=== PATIENT | female | born 1950 | race Hispanic/Latino ===

== ENCOUNTER 2020-04-04 09:01 | Day surgery (SDC) | payer OTHER ==
[2020-03-27 11:18] LABS: Absolute Lymphocytes (CBC) 2.3 K/uL (0.7-4.9); Basophils % 0.8 % (0-1.3); Hematocrit 38.7 % (36.0-45.0); Lymphocytes % 30.8 % (15.3-44.8); MPV 8.4 fL (7.6-11.3); RBC Red Blood Cell Count 4.32 M/uL (3.86-4.86)
[2020-03-27 11:21] LABS: Urine Appearance CLEAR; Urine Bilirubin NEGATIVE (NEG); Urine Blood TRACE (NEG); Urine Color YELLOW; Urine Glucose NEGATIVE (NEG); Urine Protein NEGATIVE (NEG)
[2020-03-27 11:23] LABS: Urine Microscopic Reflex ORDER UMIC
[2020-03-27 11:34] LABS: Urine Bacteria 20-50 /HPF (<20); Urine Culture Reflex Order REFLEXED; Urine RBC <5 /HPF (NONE SEEN)
[2020-04-04] MEDS ORDERED: MIDAZOLAM HCL 2 MG/2 ML INJ ONE (09:21)
[2020-04-04] MEDS ORDERED: propofoL 200 MG/20 ML VIAL IV ONE (09:21)
[2020-04-04] MEDS ORDERED: ROCURONIUM 50 MG/5 ML VIAL IV ONE (09:22)
[2020-04-04] MEDS ORDERED: FENTANYL CITR 250 MCG/5 ML ONE (09:22)
[2020-04-04] MEDS ORDERED: ONDANSETRON 4 MG/2 ML VIAL ONE (09:22)
[2020-04-04] MEDS ORDERED: dexAMETHasone 10 MG/ML VIAL ONE (09:22)
[2020-04-04] MEDS ORDERED: LIDOCAINE 2% MPF 5 ML VIAL ONE (09:22)
--- OUTSIDE RECORDS SUMMARY | 2020-04-04 09:23 | XMS REPORT | Continuity of Care Document ---
:1950 Author Organization [facility] t Address 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[facility] rhinitis, rhinitis, [facility] - unspecifie unspecifie Me moria d d l seasonalit seasonalit Ou tpati y, y, ent unspecifie unspecifie Cl inics d trigger d trigger Hypertensi Hypertensi Problem Active [facility] on, on, [facility] - unspecifie unspecifie Me moria d type d type l [facility] Blood Blood Problem Active [facility] pressure pressure [facility] - elevated elevated Memori a without without l history of history of Ou tpati HTN HTN ent Clinics Uncontroll Uncontroll Diagnosis Active [facility] ed type 2 ed type 2 Luke s - diabetes diabetes Memori a mellitus mellitus l without without Outpati complicati complicati en t on, on, Clinics without without long-term long-term current current use of use of insulin insulin Vaginal Vaginal Problem Active [facility] pessary pessary [facility] - present present Memoria l [facility] Bladder Bladder Problem Active [facility] prolapse, prolapse, Luke s - female, female, Memoria acquired acquired l [facility]ics Abnormal Abnormal Problem Active [facility] renal renal [facility] - function function Memori a test test l [facility] Clinics Overweight Overweight Problem Active [facility] (BMI (BMI Lukes - 25.0-29.9) 25.0-29.9) Me moria l [facility] Clinics Preoperati Preoperati Diagnosis Active [facility] ve ve [facility] - clearance clearance Will dylon l [facility] Clinics Allergies, Adverse Reactions, Alerts Allergy Allergy Status Severity Reaction(s) Onset Inactive Treating Comm ents Source Name Type Date Date Clinician Tylenol Adverse Active Info Not [facility] with Reaction Available [facility] - Codeine Memoria #3 l [facility] ent Clinics Medications Ordered Filled Start Stop Current Ordering Indication Dosage Frequency Signature Comments Components Source Medication Medication Date Date Medication? Clinician (SIG) Name Name Villa Driver Yes Alena [address] [facility] 4[facility]15 [facility] - 00:00: Memoria 00 [facility] ent [facility] Glimepiride Glimepiride Yes Alena [address] [facility] 3-01 [place] with Lukes - 00:00: breakfast Memoria or the l first main [facility] meal of ent the day [facility] Alena [address] [facility] 3[facility]01 [facility] - 00:00: Memoria 00 [facility] ent [facility] Lisinopril Lisinopril Yes Alena [address] [facility] 4-09 Millender for high Lukes - 00:00: blood Memoria 00 pressure [facility] Clinics Hair Skin Hair Skin Yes Alena not [facility] Nails Nails Millender defined [facility] - Memoria [facility] ent Clinics Vitamin D Vitamin D Yes Alena [address] [facility] Millender [facility] - Memoria l [facility] ent Clinics Vitamin E Vitamin E Yes Alena [address] [facility] Millender [facility] - Memoria l [facility] ent Clinics Contour Contour Yes Alena USE ONCE [facility] Next Test Next Test Millender DAILY; DX [facility] - CODE#E11.6 Memoria 5 l [facility] ent Clinics Jc Jc Yes Alena TEST BS [facility] Microlet Microlet Millender ONCE A DAY [facility] - Lancets Lancets Memoria [facility] ent Clinics Procedures This patient has no known procedures. Encounters Start End Encounter Admission Attending Care Care Encounter Source Date/Time Date/Time Type Type Clinicians Facility Department ID 2019-12-28 2019-12-28 Outpatient Liz Reardon [id number] [facility] 13:00:00 13:00:00 [facility] - [facility] Family Medicine Medicine [facility] ent [facility] 2019-12-09 2019-12-09 Outpatient Liz Reardon [id number] [facility] 09:51:00 09:51:00 t [facility] Medicine Outpati ent Clinics 2019-09-20 2019-09-20 [facility] [id number] 22:07:00 22:07:00 t [facility] Medicine Outpati ent Clinics 2019-09-13 2019-09-13 [facility] [id number] [address] 10:15:00 10:15:00 t [facility] Medicine Outpati ent Clinics 2018-11-16 2018-11-16 [facility] [id number] [address] 22:38:00 22:38:00 t [facility] Medicine Outpati ent Clinics 2018-11-16 2018-11-16 [facility] [id number] 11:20:00 11:20:00 [facility] Medicine Outpati ent Clinics 2018-10-19 2018-10-19 [facility] [id number] [address] 14:55:00 14:55:00 t [facility] Medicine Outpati ent Clinics 2018-10-09 2018-10-09 [facility] [id number] 09:42:00 09:42:00 [facility] Medicine Outpati ent Clinics 2018-10-02 2018-10-02 [facility] [id number] 10:00:00 10:00:00 [facility] Medicine Outpati ent Clinics 2018-08-18 2018-08-18 [facility] [id number] 14:00:00 14:00:00 [facility] Medicine Outpati ent Clinics 2018-05-14 2018-05-14 [facility] [id number] [address] 09:47:00 09:47:00 [facility] Medicine Outpati ent Clinics 2018-02-09 2018-02-09 [facility] [id number] [facility] 10:45:00 10:45:00 [facility] 2017-12-17 2017-12-17 Outpatient Liz Reardon [id number] [facility] 14:56:00 14:56:00 [facility] ent Clinics Results This patient has no known results.
[2020-04-04] MEDS ORDERED: BUPIVACAINE 0.25% PF 30 ML VIAL ONE ×2 (09:26→09:42)
[2020-04-04] MEDS ORDERED: SCOPOLAMINE HYDROBROMIDE PATCH TD ONE (09:41)
[2020-04-04] MEDS ORDERED: CEFAZOLIN/SWI 1gm 1 GM/10 ML SYR ONE (09:42)
[2020-04-04] MEDS ORDERED: NA CHLORIDE 0.9% 1,000 ML ONE ×4 (09:42→16:21)
[2020-04-04] MEDS ORDERED: CEFAZOLIN/SWI 1gm 2 GM/20 ML SYR ONE (09:42)
[2020-04-04] MEDS ORDERED: HEPARIN 5000 UNIT/ML 1 ML VIAL ONE (09:42)
[2020-04-04] MEDS ORDERED: NA CHLORIDE 0.9% 100 ML IV ONE (09:42)
[2020-04-04] MEDS ORDERED: Ringers Lactate 1,000 ML IV ONE (10:48)
[2020-04-04] MEDS ORDERED: FENTANYL CITR 100 MCG/2 ML ONE ×2 (11:11→15:10)
[2020-04-04] MEDS ORDERED: NS 0.9% VIAL 10 ML ONE (11:19)
[2020-04-04] MEDS: VASOPRESSIN 20 UNIT/ML VIAL ONE ×2 (11:38→16:15)
[2020-04-04] MEDS ORDERED: VECURONIUM 10 MG/VIAL IV ONE (11:41)
[2020-04-04] MEDS ORDERED: KETOROLAC 30 MG/ML INJ ONE (13:17)
[2020-04-04] MEDS ORDERED: ESMOLOL HCL 10 ML IV ONE (13:40)
[2020-04-04] MEDS ORDERED: CEFAZOLIN SODIUM 1 GM/VIAL ONE ×2 (13:49→21:45)
[2020-04-04] MEDS ORDERED: NEOSTIGMINE 1 MG/ML -5 ML ONE (15:45)
[2020-04-04] MEDS ORDERED: GLYCOPYRROLATE 0.2 MG/ML SYR ONE (15:45)
[2020-04-04] MEDS ORDERED: ONDANSETRON 4 MG/2 ML VIAL IV PRN (17:30)
[2020-04-04] MEDS ORDERED: PROMETHAZINE 25 MG TABLET PO PRN (17:30)
--- NOTE | 2020-04-04 17:39 | P.BOP ---
Preoperative diagnosis: stage 3 prolapse anterior wall/vault prolapse/occult FRANDY, perineocele Postoperative diagnosis: same and apical enterocele Primary procedure: Lapsc sacral colpopexy, apical enterocele repair, MUS, perineorrhaphy Secondary procedure: cysto Wet Mix Operator: Valeria Dunn (intraoperative consult: Dr Kennedy) Estimated blood loss: <100 Specimen: none Findings: +2/+3/+5/5/mod/8/-2/-2/n/a, apical enterocele intraop finding Anesthesia: General Complications: None Drain(s): Urinary catheter Implants: upsylon, tvt-o Fluids & blood products: none Transferred to: Recovery Room Condition: Good
[2020-04-04] MEDS: HYDROMORPHONE HCL 1 MG/ML INJ ONE ×2 (18:20→18:25)
--- NOTE | 2020-04-04 18:21 | CON ---
Date of Consultation: 04/04/2020 Reason: Patient is having colpopexy done and needed help in dissection of the sacral promontory as w ell as the tissue from the anterior cul-de-sac to that region. So, intraoperatively scrubbed and hel ped dissect all of the presacral fat away from the middle sacral blood vessel as well as the internal iliac blood vessels and a nice window of sacral promontory was identified and freed. Bleeding was c ontrolled with cautery. There was no evidence of any complication at this time and Dr. Herrera proc eeded accordingly with the procedure. /MODL Voice ID: [id number] Report ID: [id number]
[2020-04-04] MEDS ORDERED: PROMETHAZINE INJ 25 MG/ML AMP ONE (18:35)
[2020-04-04 19:48] VITALS: O2SAT 99; BMI 28.8
[2020-04-04] MEDS: MORPHINE 4 MG/ML SYR IV PRN (19:58)
[2020-04-04] MEDS: Ringers Lactate 1,000 ML IV SCH (20:12)
[2020-04-04] MEDS: CEFAZOLIN/SWI 1gm 1 GM/10 ML SYR IVP SCH (21:30)
[2020-04-05] MEDS: HYDROCODONE/APAP 5/325 MG TAB PO PRN ×3 (00:02→12:35)
[2020-04-05] MEDS: Ringers Lactate 1,000 ML IV SCH (03:45)
[2020-04-05] MEDS: MORPHINE 4 MG/ML SYR IV PRN (03:49)
[2020-04-05] MEDS: CEFAZOLIN/SWI 1gm 1 GM/10 ML SYR IVP SCH ×2 (05:40→08:16)
[2020-04-05 06:38] LABS: Absolute Lymphocytes (CBC) 1.9 K/uL (0.7-4.9); Basophils % 0.4 % (0-1.3); Hematocrit 31.3 % (36.0-45.0); Lymphocytes % 16.7 % (15.3-44.8); MPV 8.8 fL (7.6-11.3); RBC Red Blood Cell Count 3.51 M/uL (3.86-4.86)
[2020-04-05 08:24] LABS: Blood Morphology Comment NOT SEEN (NOT SEEN); Platelet Estimate ADEQ; White Blood Cell Scan OK
[2020-04-05] MEDS ORDERED: HOME MED 1 EA UNK (Linagliptin [Tradjenta] 5 MG) PO SCH (09:00)
[2020-04-05] MEDS ORDERED: GLIMEPIRIDE 2 MG TABLET PO SCH (09:00)
[2020-04-05] MEDS ORDERED: IBUPROFEN 600 MG TAB PO ONE (10:27)
[2020-04-05] MEDS ORDERED: IBUPROFEN 600 MG TAB ONE (10:42)
[2020-04-05 12:40] VITALS: BP 121/61; TEMP 97
--- NOTE | 2020-04-08 11:44 | OP ---
Date of Procedure: 04/04/2020 Surgeon: Justa Herrera MD Social Economist: Valeria Dunn. Preoperative Diagnoses: Prolapse of the vaginal euceda after hysterectomy, anterior wall stage III pr olapse. Occult stress urinary incontinence and posterior defect with perineal body defect. Postoperative Diagnoses: Prolapse of the vaginal euceda after hysterectomy, anterior wall stage III p rolapse. Occult stress urinary incontinence and posterior defect with perineal body defect. Apical enterocele. Procedures Performed: 1.Laparoscopy with laparoscopic sacrocolpopexy. 2.Apical enterocele repair. 3.Mid urethral sling TVT-O. 4.Distal posterior wall repair and perineal body repair. 5.Cystoscopy. Intraoperative Professional Services Consultant: Dr. Edson Kennedy. Specimens: No specimens. Complications: No complications. Drains: Milton catheter and vaginal packing. Estimated Blood Loss: Less than 100. Urine Output: More than 300. Two doses of antibiotics, after the third hour another dose was given. Condition: Stable. Findings: Anterior wall prolapse, posterior wall prolapse, posterior defect present mostly in the fo rm of distal defect with her perineal body defect. The apical defect mostly appeared to be vaginal v henry dropped. However, on intraperitoneal examination, it was noted that the patient had a significa nt amount of apical isolated enterocele where the vaginal cuff had and given rise to an ent erocele, but the posterior connective tissue condensation had from the apex and the anterio r wall. The apical repair was performed with the help of PDS sutures 2-0 x3, then sacrocolpopexy Epsilon mesh was used. Anteriorly distal fixation was with 2 Prolene sutures and to have the graft in place. A central distal and 2 proximal sutures were placed with 2-0 V-Loc. Then, posterior fixation was done with distal Prolene sutures on either sides and 4 2-0 V-Loc sutures to hold the graft in place in the center, distally and then proximally on either sides in the center. At least a centimeter of the Y-mesh was left before the confluence above the level of the apex. The fixation at the sacral promontory to the anterior longitudinal ligament was performed with the help o f 6 Protac pins. The mid urethral sling was placed using the TVT-O graft, transobturator inside-out and posterior repa ir with help of 2-0 PDS. On the rectovaginal septum to correct the defect in the perineal body for r epair closure with 2-0 Vicryl. The patient was referred by her primary care Dr. Sherwood, had seen one of the OB-JIG GRINDER's in [facility]. Th e prolapse was significant and she had some voiding dysfunction and mixed incontinence. She was refe rred for evaluation of her bulge. Initially after full evaluation, the patient opted to have pessary after management of pessary for over a year. She was unable to maintain the pessary, had recurrent bladder infections. Despite this, with some voiding dysfunction and with difficulty with the pessary , wanted to proceed with getting her defect repaired surgically. After medical clearance an optimal glycemic control that she is a diabetic, she was then consented. After understanding the both marshall tissue repair, if vaginal and laparoscopic, graft augmented repair, understanding the benefits and r isks and complications including the rare complication of fistula to the bladder or to the bowel eith er small or large bowel. All these were understood and adhesions to the graft, back pain, pelvic jg n, groin pain and bladder retention were all discussed. She was consented and taken to the OR. Description Of Procedure: After 2 g of Ancef was given, she had 5000 heparin subcu given, the patien t was taken back to OR, placed in a supine fashion on the operating table and general anesthesia was given. She was placed in a dorsal lithotomy position. Abdomen, vulva, vagina, and perineum prepped and draped in a sterile fashion. Arms tucked by the side, positioning checked, time-out done. The patient was repositioned to time, she slid on the table but great care was taken not to put exces sive pressure on her shoulders or on her back. Her position was maintained optimally throughout the procedure. After Milton was inserted and attached to retrograde filling bag. The [employer] elevator was used in the vagina for elevation while performing the colpopexy. 1 cm infraumbilical incision made with a scalpel, fascia incised, tagged with 0 Vicryl sutures. Sylvia toneum entered sharply. S-retractors were placed after incising the Luis trocar and site of entry was checked, upper abdominal surface was completely unremarkable as well as the pelvic structures. N o anatomical variation. In the courses of the ureters, the bladder appeared to be adherent to the va ginal cuff and the apex posteriorly the bowel had no other issues. Attention was first paid to getting into the plane between the bladder and the vaginal avoiding the v esicovaginal space staying once a duct layer supervisor to prevent graft exposure. Once this area was dissected a t least 5 cm from the apex carefully taking down the bladder in a push-spread technique, then went ah ead and did the posterior dissection picking up the peritoneum, incising it with scissors and taking the dissection laterally at least getting 7 cm of the posterior vaginal wall, 5 cm anteriorly. Then, the peritoneum was opened up from the sacral promontory to connect with the posterior incision, the uterosacral on the right side was identifiable, however, on the left side it was completely stretched out, so she was a better candidate for a sacrocolpopexy, uterosacral suspension was not feasible wit h a good fixation. A 10 suprapubic and 2/8 on each lower quadrant were placed and left upper quadrant incision for the b owel retraction with the epiploicae using a 3-0 Monocryl. Danny-Nataliia needle was used to retriev e this through the left upper quadrant and held on hemostats over the abdominal wall. Once the sacral promontory was well identified, the presacral nerves were moved to the side. The con fluence of the vessels of the IVC were all visualized. The middle sacral vessels were identified as the peritoneum was opened up and then the presacral fat was dissected. The hypogastric nerves were m ale to the side and then the presacral vessels were cauterized with the tip of the bipolar [place] graspers. Then, once the dissection was performed, Dr. Kennedy helped me with the sacral promontory di ssection. The ureter, internal iliac on the right side were removed to one side. The left inferior mesenteric vein was moved towards the midline into the left carefully protecting this while performin g the dissection. Once the promontory and the level of S1 was well visualized, then the rest of the dissection was opened up appropriately. The Y-mesh was fashioned 6 cm anteriorly, 8 cm posteriorly and then brought in with suturing the cent er distal with the 2-0 V-Loc. Then, 2 Prolene sutures on each side, they were tied with extracorpore al knots. The 2 V-Loc were placed posterior proximal part not close to the apex but at this point, I identified that there was an apical enterocele and this was repaired by pulling up the rectovaginal fascia and suturing into the anterior precervical fascia by anterior wall connective tissue. To clos e the enterocele where only vaginal epithelium and sub-epithelium was present. There was no muscular is or connective tissue or collagen tissue. So, the anterior and posterior euceda were sutured togeth er with the help of 2-0 PDS to prevent exposure of the graft or enterocele. Once this was done, the posterior wall was straightened up, then the mesh was stitched on. Then, the distal sutures were delonte ramiro posteriorly and the mesh was tensioned at the level of the promontory at least 5-6 cm was left fr om the confluence to the level where it was tacked to the anterior longitudinal ligament. 1 row of 3 marcelo were placed. Then, the mesh was folded up and row of 3 proximal marcelo were placed. The m esh was trimmed. Then, anterior wall mesh was secured with 2 Prolene in the distal parts. However, at this point, once I went and did a vaginal exam, the anterior prolapse was not satisfactorily reduc ed, so went back to the Prolene sutures down and readjusted so the suspension was better to the anter ior wall. Dissect the bladder down 1 more cm and this helped me freely pull the left anterior vagina l wall. Once this graft fixation was done in this fashion, vaginal exam was performed. After this i t was identified to be adequate without being too tight. Then, the gloves were changed, came back up to the top. Then, went ahead and finished the fixation in the center to lay the mesh flap and then 2 proximal sutures not to the apex slightly below with 2-0 V-Loc sutures. Then, the peritoneal closu re was performed with a continuous 2-0 V-Loc in a Y-shaped fashion without exposing the knots or unde rlying graft. Thorough irrigation and suction were performed. No evidence of any electrical mechanical or thermal injury to the ureters or the rectum or anteriorly. There was EEA Sizer placed in the rectum, which w as then removed. Once all the trocars were removed. Injection was performed to the fascia and skin with 0.25% Marcain e both the entry and exit, gas desufflated. Fascia at the umbilicus was closed with a [id number]-[id number]-pjob t and suprapubic closed with a simple 0 Vicryl stitch. All skin incisions interrupted 4-0 Vicryl. Mid urethral sling was performed. The Milton was left in place. Mid urethral area was picked up with the help of Allis clamps, injected with dilute vasopressin. Then, 1 cm incision was made in the mid urethra slightly more proximal. Then, subcutaneous tissues were opened up and the plane was dissect ed at a 45-degree angle to the horizontal and vertical planes, pointing to the ipsilateral. Obturato r space, after passing under the inferior pubic ramus into the obturator space, this popped open. Th e wing guide was placed and the spike was passed hugging the inferior pubic ramus and exiting at leas t 2 cm above and 1 cm lateral to the groin fold along the line dropped at the level between external meatus and the clitoris, avoiding the adductor tendon. Once the spike was retrieved, similar spike w as passed on opposite side after creating a tunnel placing the wing guide and passing it through gett ing to the obturator space and turned it to good angle and exiting at a good surface landmark. The s ling was tensioned using Metzenbaum in the center. Sheaths were pulled out. The mesh was trimmed an d flushed, 3-0 Vicryl sutures interrupted were placed in each groin for the incision closure and then the vaginal epithelial closure was performed with the help of 3-0 Vicryl in a continuous running fas hion. Thorough irrigation was performed before the closure and tensioning was checked and there was a little looseness in the midline. The Milton was removed, cystoscopy was performed. Strong jets of urine from both ureteric orifices. No evidence of any injury, grafted suture material or the sling. No other foreign bodies or tumors. The scope was removed. Bladder was drained. Milton was replaced, retracted superiorly. Posterior vaginal repair was done. The vestibular area picked up with Allis clamps. Identified the area where and the perineal body defect. A kayla-shaped incision was made in the posteri or midline after injecting dilute vasopressin, at least 4 cm in the posterior wall. Rest of it was n ice and lifted up. Then, the kayla-shaped incision was made with a scalpel, excised. The vaginal epithelium and sub-epithelium excised, whatever connective tissue was left behind, the defect was tati ntified. The edges were trimmed up and fell exposed. Then, 2-0 PDS was used to bring them all toget her in a continuous running fashion. The perineal body was also reconstructed with this and this was tied. The skin was appropriately fashioned to have those edges without trimming excessive tissue, c ontinuous running 2-0 Vicryl in a horizontal mattress fashion was placed to close. The perineum was also closed with the help of the same suture and the suture tied inside the hymen. The rectal exam p erformed negative, no graft, no sutures from the top from the repair in the distal portion. Vaginal packing was placed. Instrument, needle, and sponge counts were done and were correct at the end of t he case. The patient was sent to the PACU in stable condition and three doses of Ancef further and a voiding trial in the morning. ASHOK/OLIVIA Voice ID: [id number] Report ID: [id number]
== END 2020-04-05 15:15 | disposition home or self-care (01) ==
LOC: OR 09:01 → 2ND-WC 18:04 → OR 04-05 15:15
PROVIDERS: ATTEND Obstetrics & Gynecology
PROC: 0JUC0JZ Supplement of Pelvic Region Subcutaneous Tissue and Fascia with Synthetic Substitute, Open Approach (ICD-10-PCS; 2020-04-04)
PROC: 0JUC3JZ Supplement of Pelvic Region Subcutaneous Tissue and Fascia with Synthetic Substitute, Percutaneous Approach (ICD-10-PCS; 2020-04-04)
PROC: 0UQF3ZZ Repair Cul-de-sac, Percutaneous Approach (ICD-10-PCS; 2020-04-04)
PROC: 0JUC3JZ Supplement of Pelvic Region Subcutaneous Tissue and Fascia with Synthetic Substitute, Percutaneous Approach (ICD-10-PCS; 2020-04-04)
PROC: 0TSD4ZZ Reposition Urethra, Percutaneous Endoscopic Approach (ICD-10-PCS; 2020-04-04)
PROC: 0USG4ZZ Reposition Vagina, Percutaneous Endoscopic Approach (ICD-10-PCS; principal; 2020-04-04 10:45)
DX: N99.3 Prolapse of vaginal vault after hysterectomy (principal); N95.2 Postmenopausal atrophic vaginitis; N39.3 Stress incontinence (female) (male); Z20.828 Contact with and (suspected) exposure to other viral communicable diseases; E11.9 Type 2 diabetes mellitus without complications; M19.90 Unspecified osteoarthritis, unspecified site; Z79.84 Long term (current) use of oral hypoglycemic drugs; Z79.899 Other long term (current) drug therapy
CPT/HCPCS: 57425; 57285; 57250; 57267 ×2; 57288; 87088; 85025 ×2; 87086; 80048; 36415 ×2; 86900; 86850; 85610; 86901; 82947 ×4; 85730; 87077; 87186; U0002; J2704; J2550; J1644; J2250; J3010 ×3; J1100; J1170; J2710; J0690 ×7; J7120 ×2; J7030 ×4; J2405; 81003; 81015